=== PATIENT | female | born 1960 | race Caucasian/White ===

== ENCOUNTER 2021-10-23 09:26 | Emergency (ER) | payer OTHER ==
[~2021-10-23] VITALS: Ht 172.7 cm; Wt 88.0 kg
[2021-10-23 09:30] VITALS: BP 163/101
[2021-10-23] MEDS ORDERED: CLOT15CR27 TP (10:34)
== END 2021-10-23 10:45 | disposition home or self-care (01) ==
LOC: ER 09:26
DX: B35.6 Tinea cruris (principal); I10 Essential (primary) hypertension; Z98.51 Tubal ligation status; I49.9 Cardiac arrhythmia, unspecified
CPT/HCPCS: 99282

== ENCOUNTER 2021-12-17 10:01 | Emergency (ER) | payer OTHER ==
[~2021-12-17] VITALS: Ht 172.7 cm; Wt 89.0 kg
[~2021-12-17 10:01] MED LIST: CLOT15CR27 TP
[2021-12-17 10:08] VITALS: BP 132/88
[2021-12-17] MEDS ORDERED: CEPH500C2 MT (11:07)
[2021-12-17] MEDS ORDERED: SULF1TAB48 MT (11:07)
[2021-12-17] MEDS ORDERED: IBUP-2029 MT (11:07)
== END 2021-12-17 11:36 | disposition home or self-care (01) ==
LOC: ER 10:01
DX: N76.4 Abscess of vulva (principal); I10 Essential (primary) hypertension
CPT/HCPCS: 99283

== ENCOUNTER 2022-05-08 16:08 | Emergency (ER) | payer OTHER ==
[~2022-05-08] VITALS: Ht 167.6 cm; Wt 101.0 kg
[~2022-05-08 16:08] MED LIST changes: +CEPH500C2 MT; +CEPH500T MT; +IBUP-2029 MT; +SULF1TAB48 MT
[2022-05-08 16:29] VITALS: BP 190/109
== END 2022-05-08 18:55 | disposition left against medical advice (07) ==
LOC: ER 16:08
DX: Z53.21 Procedure and treatment not carried out due to patient leaving prior to being seen by health care provider (principal)

== ENCOUNTER 2022-05-13 07:27 | Emergency (ER) | payer OTHER ==
[~2022-05-13] VITALS: Ht 172.7 cm; Wt 101.0 kg
[2022-05-13] MEDS ORDERED: NYST15CR36 TP (08:36)
[2022-05-13] MEDS ORDERED: ZINC113C10 TP (08:36)
[2022-05-13 08:44] VITALS: BP 136/67
== END 2022-05-13 08:45 | disposition home or self-care (01) ==
LOC: ER 07:40
DX: L30.4 Erythema intertrigo (principal)
CPT/HCPCS: 99283

== ENCOUNTER 2022-05-20 08:07 | Emergency (ER) | payer OTHER ==
[~2022-05-20] VITALS: Ht 172.7 cm; Wt 91.0 kg
[~2022-05-20 08:07] MED LIST changes: +NYST15CR36 TP; +ZINC113C10 TP
[2022-05-20 08:21] VITALS: BP 173/99
[2022-05-20] MEDS ORDERED: NYST15CR36 TP (10:09)
== END 2022-05-20 10:36 | disposition home or self-care (01) ==
LOC: ER 08:07
DX: R21 Rash and other nonspecific skin eruption (principal); I10 Essential (primary) hypertension
CPT/HCPCS: 99281

== ENCOUNTER 2022-10-14 07:51 | Emergency (ER) | payer OTHER ==
[~2022-10-14] VITALS: Ht 172.7 cm; Wt 93.0 kg
[2022-10-14 08:03] VITALS: BP 187/98
[2022-10-14 11:18] LABS: CLARITY URINE CLEAR (CLEAR); COLOR URINE YELLOW (YELLOW); KETONES URINE NEGATIVE (NEGATIVE); LEUKOCYTE ESTERASE URINE NEGATIVE (NEGATIVE); NITRITE URINE NEGATIVE (NEGATIVE); OCCULT BLOOD URINE NEGATIVE (NEGATIVE); PH URINE 6.5 (4.5-8.0); PROTEIN URINE NEGATIVE (NEGATIVE); SPECIFIC GRAVITY URINE 1.004 (1.005-1.030); UROBILINOGEN URINE 0.2 E.U./dL (0.2-1.0)
[2022-10-14] MEDS ORDERED: SULF1TAB47 MT (11:26)
== END 2022-10-14 11:52 | disposition home or self-care (01) ==
LOC: ER 08:29
DX: N76.4 Abscess of vulva (principal); I10 Essential (primary) hypertension; Z79.899 Other long term (current) drug therapy; Z98.51 Tubal ligation status
CPT/HCPCS: 81003; 99283

== ENCOUNTER 2023-04-10 16:38 | Emergency (ER) | payer OTHER ==
[~2023-04-10] VITALS: Ht 172.7 cm; Wt 100.0 kg
[~2023-04-10 16:38] MED LIST changes: +SULF1TAB47 MT
[2023-04-10 17:07] VITALS: O2SAT 97
[2023-04-10 18:41] LABS: CLARITY URINE TURBID (CLEAR); COLOR URINE YELLOW (YELLOW); GLUCOSE URINE NEGATIVE (NEGATIVE); KETONES URINE NEGATIVE (NEGATIVE); LEUKOCYTE ESTERASE URINE 3+ (NEGATIVE); NITRITE URINE POSITIVE (NEGATIVE); OCCULT BLOOD URINE TRACE (NEGATIVE); PH URINE 7.5 (4.5-8.0); PROTEIN URINE 2+ (NEGATIVE); SPECIFIC GRAVITY URINE 1.022 (1.005-1.030)
[2023-04-10] MEDS ORDERED: NITR100C MT (18:53)
[2023-04-10 19:11] LABS: BACTERIA URINE 2+; RBC URINE 0-2 /hpf (0-2); SQUAMOUS EPITHELIAL CELL URINE 1+ /lpf (RARE/1+); WBC URINE TNTC /hpf (0-2)
[2023-04-10 19:28] VITALS: BP 121/84; PULSE 100; RESP 18; TEMP 98.5
== END 2023-04-10 19:30 | disposition home or self-care (01) ==
LOC: ER 16:38
DX: N39.0 Urinary tract infection, site not specified (principal); I10 Essential (primary) hypertension; Z79.899 Other long term (current) drug therapy; Z98.51 Tubal ligation status
CPT/HCPCS: 81003; 87077; 87186; 99283